=== PATIENT | female | born 1975 | race Caucasian/White ===

== ENCOUNTER → 2020-06-10 | Outpatient (CLI) | payer OTHER ==
[~2020-06-10] MED LIST: CETIRIZINE HCL10 MG PO; CYCLOBENZAPRINE10 MG PO; DICLOFENAC GEL 1% TOP; GLYBURIDE2.5 MG PO; HYDROCODON-ACE1 EAC6 PO; JANUVIA100 MG PO; LOW DOSE ASPIRI81 MG PO; NEURONTIN800 MG PO; SYNJARDY XR PO; VOLTREN XR 100100 MG PO
== END ==
LOC: MAMO 14:30
DX: Z12.31 Encounter for screening mammogram for malignant neoplasm of breast (principal)
CPT/HCPCS: 77063; 77067

== ENCOUNTER → 2020-06-18 | Outpatient (CLI) | payer OTHER | LOC: KOH-I 10:38 | DX: M21.961 Unspecified acquired deformity of right lower leg (principal); M79.671 Pain in right foot; M25.871 Other specified joint disorders, right ankle and foot; M19.071 Primary osteoarthritis, right ankle and foot | CPT/HCPCS: 73610; 73630 ==

== ENCOUNTER → 2020-06-28 | Outpatient (CLI) | payer OTHER | LOC: KOH-I 10:49 | DX: M19.071 Primary osteoarthritis, right ankle and foot (principal); M67.873 Other specified disorders of tendon, right ankle and foot; M79.89 Other specified soft tissue disorders | CPT/HCPCS: 73721 ==

== ENCOUNTER → 2020-08-28 | Outpatient (CLI) | payer OTHER ==
[2020-08-28 10:37] LABS: HEMOGLOBIN 11.2 gm/dl (12.3-15.3); RED BLOOD COUNT 5.12 M/UL (4.00-5.10); WHITE BLOOD COUNT 9.5 K/UL (4.5-11.0)
[2020-08-28 10:53] LABS: BUN/CREATININE RATIO 15 (0-10)
== END ==
LOC: OPSV2 09:00
PROVIDERS: Podiatrist Foot & Ankle Surgery
DX: Z01.812 Encounter for preprocedural laboratory examination (principal); S82.402A Unspecified fracture of shaft of left fibula, initial encounter for closed fracture
CPT/HCPCS: 36415; 80048; 83036; 85027

== ENCOUNTER → 2020-09-04 | Day surgery (SDC) | payer OTHER ==
[~2020-09-04] VITALS: Ht 160 cm; Wt 92.5 kg
== END | disposition home or self-care (01) ==
LOC: OR 06:07
DX: M89.8X7 Other specified disorders of bone, ankle and foot (principal); M25.371 Other instability, right ankle; M79.2 Neuralgia and neuritis, unspecified; E78.5 Hyperlipidemia, unspecified; I10 Essential (primary) hypertension; K21.9 Gastro-esophageal reflux disease without esophagitis; M19.90 Unspecified osteoarthritis, unspecified site; E11.65 Type 2 diabetes mellitus with hyperglycemia; F17.210 Nicotine dependence, cigarettes, uncomplicated; Z88.0 Allergy status to penicillin; Z79.82 Long term (current) use of aspirin; Z79.84 Long term (current) use of oral hypoglycemic drugs; Z79.891 Long term (current) use of opiate analgesic; Z79.899 Other long term (current) drug therapy
CPT/HCPCS: 82962; C1713; J1100; J1885; J2001; J2250; J2370; J2405; J2550; J2704; J2710; J2795; J3010; J3370; J7030; J7120; Q4133

== ENCOUNTER 2020-09-09 10:12 | Emergency (ER) | payer OTHER | END 2020-09-09 12:15 | disposition home or self-care (01) | LOC: ER1 10:12 | DX: M25.571 Pain in right ankle and joints of right foot (principal); I10 Essential (primary) hypertension; E11.9 Type 2 diabetes mellitus without complications; F17.200 Nicotine dependence, unspecified, uncomplicated | CPT/HCPCS: 73610; 73630; 99283 ==

== ENCOUNTER → 2020-10-24 | Outpatient (CLI) | payer OTHER | LOC: KOH-I 10:06 | DX: S82.401A Unspecified fracture of shaft of right fibula, initial encounter for closed fracture (principal) | CPT/HCPCS: 73610 ==

== ENCOUNTER → 2020-11-14 | Outpatient (CLI) | payer OTHER | LOC: KOH-I 08:55 | DX: S82.891A Other fracture of right lower leg, initial encounter for closed fracture (principal); M79.89 Other specified soft tissue disorders | CPT/HCPCS: 73610 ==

== ENCOUNTER → 2021-06-23 | Outpatient (CLI) | payer OTHER | LOC: HEART 5 15:00 | DX: R00.2 Palpitations (principal) ==